=== PATIENT | male | born 1955 | race African-American/Black ===

== ENCOUNTER 2018-09-09 15:57 | Inpatient (IN) | payer MEDICARE, OTHER ==
[2018-09-09] MEDS ORDERED: Aspirin Chewable 81 MG TAB ONE (16:11)
[2018-09-09] MEDS ORDERED: Nitroglycerin 2% Ointment 1 INCH/1 GM Packet ONE (16:11)
[2018-09-09] MEDS ORDERED: Nitroglycerin 0.4 MG TAB 1 EACH ONE (16:11)
[2018-09-09] MEDS ORDERED: Furosemide 40 MG/4 ML VIAL ONE (16:15)
[2018-09-09 16:24] LABS: Actual Bicarbonate (HCO3a) 20.7 mEq/L (22-28); Analyzer IN Cardio ER; Base Excess (BEa) -8.1 mEq/L (-2.0 to +3.0); CO2 Tension 55.9 mmHg (35.0-45.0); Calcium, Ionized 1.18 mmol/L (1.12-1.30); Carboxyhemoglobin (COHb) 0.6 gm% (0.0-3.0); Hemoglobin (Hb) 14.8 g/dL (14.0-18.0); Potassium - ABG Lab 4.77 mmol/L (3.70-5.30)
[2018-09-09 16:25] LABS: ALV-art Gradient 132.625 (0-20); Puncture Site LRA; pH, Arterial 7.19 (7.35-7.45)
[2018-09-09 16:27] LABS: #Basophils 0.1 thou/uL (0.0-0.2); #Eosinphils 0.3 thou/uL (0.0-0.7); #Monocytes 1.6 thou/uL (0.11-0.59); %Basophils 0.6 % (0.0-1.0); %Eosinophils 1.9 % (0.0-10.0); %Lymphocytes 26.7 % (21.0-51.0); %Monocytes 10.4 % (0.0-10.0); %Neutrophils 60.4 % (42.0-75.0); Hemoglobin 15.1 g/dL (14.0-18.0); Mean Corpuscular HGB CONC 30.3 g/dL (32.0-36.0); Mean Corpuscular Hemoglobin 30.5 pg (27.0-31.0); Mean Platelet Volume 8.6 fL (7.4-10.4); Platelet Count 271 thou/uL (130-400); RBC Distribution Width 12.9 % (11.5-14.5); Red Blood Cell (RBC) Count 4.95 mill/uL (4.70-6.10); White Blood Cell (WBC) Count 14.9 thou/uL (4.8-10.8)
[2018-09-09 16:48] LABS: ALT (SGPT) 35 U/L (8-55); AST (SGOT) 20 U/L (5-34); Albumin 4.5 g/dL (3.4-4.8); Alkaline Phosphatase 85 U/L (40-150); Anion Gap 20 mmol/L (10-20); BUN (Urea Nitrogen) 25 mg/dL (8.4-25.7); Bilirubin, Total 0.3 mg/dL (0.2-1.2); CK (CPK) 258 U/L (30-200); Calc. Creatinine Clearance 0 mL/min (70-130); Calcium 9.5 mg/dL (7.8-10.44); Carbon Dioxide 21 mmol/L (23-31); Chloride 105 mmol/L (98-107); Estimated GFR-MDRD 42; Globulin 3.2 g/dL (2.4-3.5); Glucose 210 mg/dL (80-115); Lipase 50 U/L (8-78); Potassium 4.8 mmol/L (3.5-5.1); Protein, Total 7.7 g/dL (5.8-8.1); Sodium 141 mmol/L (136-145)
[2018-09-09 17:10] LABS: CKMB 2.9 ng/mL (0-6.6)
--- NOTE | 2018-09-09 17:11 | RAD ---
FRONTAL VIEW CHEST: Date: 09/09/18 COMPARISON: 09/15/10. INDICATION: Dyspnea. FINDINGS: The cardiac silhouette is enlarged and there is evidence of bilateral patchy perihilar opacification. Single lead AICD remains in place. Probable right pleural fluid. IMPRESSION: Evidence of decompensated CHF, with pulmonary edema. Recommend follow-up to resolution. POS: ALTAF
[2018-09-09 21:04] LABS: Troponin I 0.088 ng/mL (< 0.028)
[2018-09-09] MEDS ORDERED: Acetaminophen 325 MG TAB PO PRN (21:42)
[2018-09-09] MEDS ORDERED: Zolpidem Tartrate 5 MG TAB PO PRN (21:42)
[2018-09-09] MEDS ORDERED: Ondansetron PF 4 MG/2 ML Vial IVP PRN (21:42)
[2018-09-09] MEDS ORDERED: Dextrose 5% in Water 1,000 ML IV PRN (21:44)
[2018-09-09] MEDS ORDERED: HumaLOG 300 UNITS/3 ML VIAL SC PRN ×2 (21:44)
[2018-09-09] MEDS ORDERED: Dextrose 50% Abboject 50 ML SYRINGE SLOW IVP PRN (21:44)
--- NOTE | 2018-09-09 21:52 | PDOC.EVN ---
Event Note - Event Note Event Note: H&P [id number]
[2018-09-09] MEDS ORDERED: cefTRIAXone\\ROCEPHIN 1 GM in Sodium Chloride 0.9% 100 ML IVPB SCH (23:00)
[2018-09-09 23:43] VITALS: BMI 37.6
[2018-09-09 23:50] LABS: Troponin I 0.085 ng/mL (< 0.028)
[2018-09-10] MEDS: Azithromycin 500 MG in Sodium Chloride 0.9% 250 ML 250 ML IVPB SCH ×2 (01:02→22:03)
[2018-09-10] MEDS: methylPREDNISolone Sod Succ 40 MG VIAL IVP SCH ×3 (01:02→11:29)
[2018-09-10] MEDS: cefTRIAXone\\ROCEPHIN 1 GM in Sodium Chloride 0.9% 100 ML IVPB SCH (03:30)
[2018-09-10 06:00] LABS: Band 5 % (5-11); Hemoglobin 12.7 g/dL (14.0-18.0); Lymphocytes 13 % (21-51); MDiff Complete? YES; Mean Corpuscular HGB CONC 31.7 g/dL (32.0-36.0); Mean Corpuscular Volume 98.1 fL (78.0-98.0); Mean Platelet Volume 8.5 fL (7.4-10.4); Monocytes 2 % (0-10); Neutrophil 79 % (42-75); Platelet Count 231 thou/uL (130-400); RBC Distribution Width 12.7 % (11.5-14.5); Reactive Lymphocytes 1 % (0-10); Red Blood Cell (RBC) Count 4.09 mill/uL (4.70-6.10)
[2018-09-10 06:39] LABS: Anion Gap 15 mmol/L (10-20); BUN (Urea Nitrogen) 24 mg/dL (8.4-25.7); Calc. Creatinine Clearance 85 mL/min (70-130); Carbon Dioxide 24 mmol/L (23-31); Chloride 105 mmol/L (98-107); Estimated GFR-MDRD 54; Glucose 265 mg/dL (80-115); Sodium 139 mmol/L (136-145)
--- NOTE | 2018-09-10 07:27 | HP ---
CHIEF COMPLAINT OF ADMISSION: Shortness of breath and cough as well as dyspnea on exertion. HISTORY OF PRESENT ILLNESS: This is a 63-year-old male, presenting to the hospital with 3-4 days of shortness of breath. The patient states that today he was having severe hypoxia and shortness of breath upon ambulation, decided to come into the ER. The patient does state that he has been smoking a pack a day for the past 30+ years and continues to do so. Stated that he quit approximately a month ago. The patient has never had any prior pulmonary evaluations or pulmonary function tests or pulmonary followup. Admits to a past medical history of diabetes mellitus, hypertension, as well as hyperlipidemia. No prior heart attacks or strokes or stenting done. The patient states that currently he feels well after the breathing treatment, steroids as well as supplemental oxygen that was given in the ER. The patient states otherwise he has no other alleviating factors. No associated symptoms. No aggravating factors. The patient was seen and examined in the ER and room. No family at bedside. All questions answered. ALLERGIES: NO KNOWN DRUG ALLERGIES. HOME MEDICATIONS: See MAR. PAST MEDICAL HISTORY: Hypertension, hyperlipidemia, smoking history, emphysema. SOCIAL HISTORY: One pack a day smoker for 20 to 30 years. Social drinker. FAMILY HISTORY: Positive for hypertension and coronary artery disease. REVIEW OF SYSTEMS: All systems reviewed. Pertinent positives in HPI, otherwise negative. PHYSICAL EXAMINATION: VITAL SIGNS: Blood pressure , pulse of 82, respiratory rate of 20, O2 saturation 100% on 3 L nasal cannula, temperature 98.5. GENERAL: The patient is lying in bed, mild respiratory discomfort. HEENT: Extraocular muscles are intact. NC/AT. Pupils are equal, round, and reactive to light and accommodation bilaterally. Oral cavity is moist and pink. NECK: Nontender, mobile. Thyroid appreciated. PULMONARY: Reveals inspiratory wheezing. Mild respiratory distress. Slight increase in AP diameter. CARDIOVASCULAR: Sinus tachycardia. S1 and S2. No murmurs, rubs, or gallops appreciated. ABDOMEN: Rotund. Positive bowel sounds. Soft, nontender. EXTREMITIES: Trace edema. 2+ peripheral pulses. No cyanosis or clubbing noted. NEUROLOGICAL: Cranial nerves 2 through 12 are intact. Alert and oriented x3. No loss of motor or sensory function. IMAGING: Chest x-ray done in the ER shows no evidence of pulmonary edema or CHF decompensation. LABORATORY DATA: Labs show a white count of 15.1, otherwise CBC normal. ABG shows a pH of 7.2, pCO2 of 56 acutely elevated, PO2 154. Basic metabolic panel shows a glucose of 210. Troponins of 0.043, 2nd one was 0.088. Brain natriuretic peptide of 314, creatinine 1.95. ASSESSMENT: 1. Troponin leak. 2. Shortness of breath. 3. Chronic obstructive pulmonary disease exacerbation. 4. Acute kidney injury versus chronic kidney disease. 5. Diabetes mellitus, type 2. 6. Hyperlipidemia. 7. Hypertension. PLAN: At this point in time, we will admit the patient to internal medicine team. We will consult to Nephrology and Cardiology. We will start the patient on aspirin, statin, heparin 5000 units q.12. Concern for ACS, however, borderline troponin leak with elevated creatinine may be secondary to decreased clearance. We will consult Cardiology and Nephrology for input. Target systolic blood pressure 120 to 140. We will start the patient on steroids. We will start the patient on insulin. We will give the patient Rocephin, azithromycin for his cough as well as the elevated white count, possibly bronchitis causing a COPD exacerbation. We will get an echo. The patient wishes to remain a full code. Case and plan were discussed with the patient at length. No family at bedside. All questions answered. He understood and agreed with this plan. Job ID: [id number]
[2018-09-10] MEDS ORDERED: Heparin 5,000 UNITS/ML VIAL SC SCH (09:00)
--- NOTE | 2018-09-10 10:16 | CON ---
DATE OF CONSULTATION: 09/10/2018 REASON FOR CONSULTATION: Congestive heart failure, systolic, [id number]. HISTORY OF PRESENT ILLNESS: Mr. Saeed is a 63-year-old gentleman with a history of nonischemic cardiomyopathy. The patient was previously seen here most recently from what I can tell 6 years ago. The patient had undergone cardiac catheterization in the past after presenting with congestive heart failure. In May 2010, he underwent catheterization, he was found to have: 1. Left main normal. 2. LAD mild proximal plaque, but no stenosis. 3. Circumflex, no stenosis. 4. Right coronary normal. 5. Ejection fraction is 25%. He has been treated for congestive heart failure and systolic dysfunction since then. He has been followed at [facility], [place], operated by [facility] for the last 5 years, he tells me. The patient also had a previous defibrillator implantation. The patient states he was feeling well up until yesterday, started having trouble breathing, came to the hospital, found to be in congestive heart failure and has been admitted for further therapy. PAST MEDICAL HISTORY: 1. Systolic congestive heart failure. 2. Apparently, he has a history of atrial fibrillation, is on apixaban and amiodarone. 3. Diabetes. 4. Hypertension. 5. COPD. MEDICATIONS: Prior to admission: 1. Carvedilol 25 mg twice daily. 2. Atorvastatin 10 mg daily. 3. Apixaban 5 mg twice daily. 4. Lisinopril 20 mg daily. 5. Amiodarone 200 mg daily. 6. Furosemide 40 mg daily. 7. Metformin. OTHER PAST HISTORY: He has a history of renal insufficiency. I believe he has had a nephrectomy in the remote past. SOCIAL HISTORY: Smokes rarely a few cigarettes per day intermittently. FAMILY HISTORY: Negative for heart disease at a young age. ALLERGIES: NONE KNOWN. PHYSICAL EXAMINATION: GENERAL: This is a pleasant 63-year-old man in no distress. VITAL SIGNS: Blood pressure is 126/69, pulse 70. HEENT: Eyes, sclerae nonicteric. Mouth mucous membranes moist. NECK: Supple. No lymphadenopathy. LUNGS: Clear. No wheezing, rales, or rhonchi. CARDIAC: Normal S1, normal S2. There is no murmur, rub, or gallop. ABDOMEN: Obese, nontender. No hepatosplenomegaly. EXTREMITIES: Warm dry, no clubbing, cyanosis. There is no edema. Peripheral pulses are present, palpable in the feet. PERTINENT LABORATORY DATA: Hemoglobin is 12.7, creatinine is 1.58, glucose 290, troponin 0.088, peak BNP 314. Chest x-ray shows pulmonary congestion and cardiomegaly. ASSESSMENT: 1. Congestive heart failure, systolic, [id number]. 2. History of nonischemic cardiomyopathy based on catheterization 2009. 3. Renal insufficiency as outlined above. 4. History of defibrillator implantation. PLAN: 1. Echocardiogram. 2. Continue heart failure medication. 3. We will draw TSH. 4. Further recommendations based on hospital course. The patient has been followed at the [facility] for the last 5 years from a heart failure standpoint. Job ID: [id number]
[2018-09-10] MEDS: Aspirin 325 mg Enteric Coated Tablet PO SCH (10:19)
[2018-09-10 12:30] LABS: Hemoglobin 13.1 g/dL (14.0-18.0); Platelet Count 246 thou/uL (130-400)
--- NOTE | 2018-09-10 13:53 | PDOC.PN ---
- Subjective Encounter Start Date: 09/10/18 Encounter Start Time: 12:30 Mr. Saeed was seen today in follow-up of Acute respiratory distress. He says he is breathing much better this afternoon. He has walked without difficulty, and he denies any chest pain. - Objective Resuscitation Status - Order Detail: 09/09/18 21:42 Resuscitation Status Routine Resuscitation Status: FULL: Full Resuscitation Discussed with: patient MAR Reviewed: Yes Vital Signs & Weight: Vital Signs (12 hours) Temp Pulse Resp BP Pulse Ox 09/10/18 11:31 97.8 F 89 20 134/71 93 L 09/10/18 07:49 98.5 F 71 17 126/69 94 L 09/10/18 04:57 99.6 F 66 20 116/60 96 Weight Weight 277 lb 12.8 oz I&O: 09/09/18 09/10/18 09/11/18 06:59 06:59 06:59 Intake Total 580 Output Total 250 Balance 330 Result Diagrams: 09/10/18 12:15 09/10/18 05:05 Additional Labs: Accuchecks 09/10/18 09/10/18 10:18 05:56 POC Glucose 244 H 290 H Phys Exam - Physical Examination HEENT: PERRLA Respiratory: no wheezing, no rales, no rhonchi, clear to auscultation bilateral Cardiovascular: RRR, no significant murmur, no rub Gastrointestinal: soft, non-tender, no distention, positive bowel sounds Musculoskeletal: no edema, pulses present Dx/Plan (1) Acute respiratory failure Code(s): J96.00 - ACUTE RESPIRATORY FAILURE, UNSP W HYPOXIA OR HYPERCAPNIA Status: Acute (2) Acute on chronic systolic heart failure, NYHA class 2 Code(s): I50.23 - ACUTE ON CHRONIC SYSTOLIC (CONGESTIVE) HEART FAILURE Status : Acute (3) Hypertension Code(s): I10 - ESSENTIAL (PRIMARY) HYPERTENSION Status: Acute (4) COPD (chronic obstructive pulmonary disease) Status: Acute - Plan * Acute on chronic respiratory failure- clinically this is more due to CHF exacerbation than COPD * He feels much improved, after being given Lasix. It is unclear if this represents an Acute coronary syndrome as well. Echo has been ordered, and await further recommendations from Cardiology * HTN- blood pressure is stable * COPD- stable - will transition him to oral steroids, and oral antibiotics in the AM
[2018-09-10] MEDS: Furosemide 40 MG/4 ML VIAL SLOW IVP SCH (14:59)
[2018-09-10] MEDS: Carvedilol 25 MG TAB PO SCH (16:38)
--- NOTE | 2018-09-10 19:10 | CON ---
DATE OF CONSULTATION: 09/10/2018 CONSULTING PHYSICIAN: Dr. George. REASON FOR CONSULTATION: Acute kidney injury. REASON FOR ADMISSION: Shortness of breath. HISTORY OF PRESENT ILLNESS: This is a 63-year-old male with history of hypertension and hyperlipidemia, who came to the hospital with shortness of breath and is being treated. Nephrology is consulted for elevated renal function. His creatinine was 1.9, and Nephrology is consulted. The patient is feeling better. PAST MEDICAL HISTORY: Positive for hypertension, hyperlipidemia, tobacco use, and emphysema. PAST SURGICAL HISTORY: Hernia surgery and right nephrectomy. HOME MEDICATIONS: Reviewed. ALLERGIES: NO KNOWN DRUG ALLERGIES. SOCIAL HISTORY: FAMILY HISTORY: No history of any kidney disease. REVIEW OF SYSTEMS: CONSTITUTIONAL: Negative for weight loss or gain, ability to conduct usual activities. SKIN: Negative for rash, itching. EYES: Negative for double vision, pain. ENT/MOUTH: Negative for nose bleeding, neck stiffness, pain, tenderness. CARDIOVASCULAR: Negative for palpitations, dyspnea on exertion, orthopnea. RESPIRATORY: Negative for shortness of breath, wheezing, cough, hemoptysis, fever or night sweats. GASTROINTESTINAL: Negative for poor appetite, abdominal pain, heartburn, nausea, vomiting, constipation, or diarrhea. GENITOURINARY: Negative for urgency, frequency, dysuria, nocturia. MUSCULOSKELETAL: Negative for pain, swelling. NEUROLOGIC/PSYCHIATRIC: Negative for anxiety, depression. ALLERGY/IMMUNOLOGIC: Negative for skin rash, bleeding tendency. PHYSICAL EXAMINATION: GENERAL: This is a well-built male, in no apparent distress. VITAL SIGNS: Temperature 98.2, pulse 71, respiratory rate 18, blood pressure 133/74. HEENT: Atraumatic and normocephalic. Oral mucosa is moist. NECK: Supple. CARDIOVASCULAR: S1 and S2 heard. Rate and rhythm are regular. RESPIRATORY: Clear. GI: Abdomen is soft. MUSCULOSKELETAL: 1+ edema. DERMATOLOGIC: No skin rash. NEUROLOGIC: Alert and awake. PSYCHIATRIC: Normal mood and affect. LABORATORY DATA: Potassium is 5.0, BUN is 24, creatinine is ASSESSMENT AND PLAN: 1. Acute kidney injury, most likely cardiorenal syndrome. Avoid nephrotoxins. 2. Hyperkalemia, mild. 3. Edema, controlled. 4. Hypertension. 5. Anemia. 6. Metabolic acidosis. 7. Avoid nephrotoxins. We will follow. Job ID: [id number]
[2018-09-10] MEDS: Apixaban 5 MG TAB PO SCH (20:34)
[2018-09-10] MEDS ORDERED: Insulin Glargine 5 UNITS in Pre-Filled Syringe 1 EACH SC SCH (21:00)
[2018-09-10] MEDS ORDERED: Atorvastatin Calcium 40 MG TAB PO SCH (21:00)
[2018-09-11] MEDS: cefTRIAXone\\ROCEPHIN 1 GM in Sodium Chloride 0.9% 100 ML IVPB SCH (03:51)
[2018-09-11] MEDS: Furosemide 40 MG/4 ML VIAL SLOW IVP SCH (05:27)
[2018-09-11 06:31] LABS: Hemoglobin 13.1 g/dL (14.0-18.0); Platelet Count 247 thou/uL (130-400)
[2018-09-11 06:51] LABS: Anion Gap 13 mmol/L (10-20); BUN (Urea Nitrogen) 25 mg/dL (8.4-25.7); Calc. Creatinine Clearance 93 mL/min (70-130); Calcium 9.1 mg/dL (7.8-10.44); Carbon Dioxide 27 mmol/L (23-31); Chloride 104 mmol/L (98-107); Estimated GFR-MDRD 60; Glucose 250 mg/dL (80-115); Potassium 4.5 mmol/L (3.5-5.1); Sodium 139 mmol/L (136-145)
[2018-09-11] MEDS ORDERED: predniSONE 20 MG TAB PO SCH (08:00)
[2018-09-11] MEDS ORDERED: glipiZIDE 10 MG TAB PO SCH (09:00)
[2018-09-11] MEDS ORDERED: Lisinopril 20 MG TAB PO SCH (09:00)
[2018-09-11] MEDS: Carvedilol 25 MG TAB PO SCH ×2 (09:25→16:28)
[2018-09-11] MEDS: Aspirin 325 mg Enteric Coated Tablet PO SCH (09:25)
[2018-09-11] MEDS: Apixaban 5 MG TAB PO SCH (09:32)
--- NOTE | 2018-09-11 10:02 | PRG ---
DATE OF SERVICE: 09/11/2018 SUBJECTIVE: Mr. Saeed is feeling better. He is not short of breath. He has no chest pain or tightness. He is resting comfortably. OBJECTIVE: VITAL SIGNS: Blood pressure 129/72, pulse 72 and regular. LUNGS: Clear. CARDIAC: Normal S1, normal S2. ABDOMEN: Soft, nontender. EXTREMITIES: There is no edema. PERTINENT LABORATORY DATA: Creatinine is 1.45, improved. Echocardiogram shows ejection fraction 25% to 30% with global hypokinesis and dilated left ventricle. ASSESSMENT: 1. Congestive heart failure, systolic, acute on chronic with history of nonischemic cardiomyopathy, has been followed at [facility] in [place] for several years. The patient is currently compensated. 2. Renal insufficiency/failure, improved. Now estimated GFR is up to 60. PLAN: 1. Okay to me to be released home to follow up [place] [facility]. 2. I would recommend a consideration for Entresto instead of lisinopril as an outpatient, but he will need to follow up with his primary lube technician to consider changing, will need to stop lisinopril for at least 36 hours prior to institution of Entresto. Job ID: [id number]
--- NOTE | 2018-09-11 12:04 | PDOC.PN ---
- Subjective Encounter Start Date: 09/11/18 Encounter Start Time: 12:01 Mr. Saeed was seen today in follow-up of CHF exacerbation. He says he is breathing better. He does not have any new complaints. - Objective Resuscitation Status - Order Detail: 09/09/18 21:42 Resuscitation Status Routine Resuscitation Status: FULL: Full Resuscitation Discussed with: patient SONG Reviewed: Yes Vital Signs & Weight: Vital Signs (12 hours) Temp Pulse Resp BP Pulse Ox 09/11/18 11:13 98.4 F 62 17 112/64 93 L 09/11/18 07:03 95 09/11/18 07:00 98.0 F 73 17 129/72 95 09/11/18 04:00 97.7 F 73 18 109/56 L 93 L Weight Weight 277 lb 12.8 oz I&O: 09/10/18 09/11/18 09/12/18 06:59 06:59 06:59 Intake Total 580 1560 Output Total 250 3050 Balance 330 -1490 Result Diagrams: 09/11/18 05:46 09/11/18 05:46 Additional Labs: Accuchecks 09/11/18 09/11/18 09/10/18 10:35 05:40 20:19 POC Glucose 215 H 237 H 284 H 09/10/18 16:48 POC Glucose 268 H Phys Exam - Physical Examination HEENT: PERRLA Respiratory: no wheezing, no rales, no rhonchi, clear to auscultation bilateral Cardiovascular: RRR, no significant murmur, no rub Gastrointestinal: soft, non-tender, no distention, positive bowel sounds Musculoskeletal: edema present Dx/Plan (1) Acute respiratory failure Code(s): J96.00 - ACUTE RESPIRATORY FAILURE, UNSP W HYPOXIA OR HYPERCAPNIA Status: Acute (2) Acute on chronic systolic heart failure, NYHA class 2 Code(s): I50.23 - ACUTE ON CHRONIC SYSTOLIC (CONGESTIVE) HEART FAILURE Status : Acute (3) Hypertension Code(s): I10 - ESSENTIAL (PRIMARY) HYPERTENSION Status: Acute (4) COPD (chronic obstructive pulmonary disease) Status: Acute - Plan * Acute on chronic systolic heart failure- improved * DM- re-start all diabetic medications at discharge * OK for discharge home today.
[2018-09-11] MEDS ORDERED: Furosemide 20 MG TAB PO SCH (14:00)
--- NOTE | 2018-09-11 14:09 | PRG ---
DATE OF SERVICE: 09/11/2018 SUBJECTIVE: Patient was seen and examined at bedside and overnight events noted. Patient denies any shortness of breath or chest pain or palpitation. No history of nausea or vomiting or diarrhea or fever or chills or cramps. OBJECTIVE: GENERAL: This is a well-built male, in no apparent distress. VITAL SIGNS: Temperature 98.4. Heart rate 62. Respiratory rate 18. Blood pressure 112/64. HEENT: Atraumatic, normocephalic. Oral mucosa is moist NECK: Supple. CARDIOVASCULAR: S1, S2 heard. Rate and rhythm regular. RESPIRATORY: Clear to auscultation. GASTROINTESTINAL: Abdomen is soft. MUSCULOSKELETAL: No tenderness. No edema. DERMATOLOGIC: No skin rash. NEUROLOGIC: Alert and awake and oriented X3. No focal neurologic deficits. Moving all the extremities. PSYCHIATRIC: Mood and affect normal. LABORATORY DATA: Potassium is 4.5, BUN is 25, and creatinine is 1.4. ASSESSMENT AND PLAN: 1. Acute kidney injury on chronic kidney disease, stage 3. Renal is function stable. Avoid nephrotoxins. 2. Hyperkalemia, better. 3. Edema, controlled. 4. Hypertension. 5. Anemia. Renal function is better. I will sign off. Please call back with any questions. Job ID: [id number]
[2018-09-11 16:28] VITALS: BP 139/76; TEMP 98
--- NOTE | 2018-09-12 02:45 | DIS ---
DATE OF ADMISSION: 09/09/2018 DATE OF DISCHARGE: 09/11/2018 DISCHARGE DISPOSITION: Home. PRIMARY CARE PHYSICIAN: Dr. Cruz. DISCHARGE DIAGNOSES: 1. Acute on chronic systolic heart failure. 2. Hyperlipidemia. 3. Hypertension. 4. Chronic obstructive pulmonary disease. 5. Tobacco abuse. DISCHARGE MEDICATIONS: Include; 1. Metformin 500 mg daily. 2. Lisinopril 20 mg daily. 3. [place] 5/325 q.6 as needed. 4. Glipizide 10 mg twice a day. 5. Lasix 40 mg daily. 6. Carvedilol 25 mg twice a day. 7. Atorvastatin 10 mg daily. 8. Eliquis 5 mg twice a day. 9. Amiodarone 200 mg daily. CODE STATUS: Full code. ALLERGIES: NO KNOWN DRUG ALLERGIES. PROCEDURES DONE DURING ADMISSION: The patient had an echocardiogram which demonstrated an ejection fraction estimated at 25% to 30%. There was some global hypokinesis. HOSPITAL COURSE: Mr. Saeed is a pleasant 63-year-old gentleman who presented to the emergency room complaining of shortness of breath as well as some dyspnea on exertion. The patient was found to have acute on chronic systolic heart failure. He was admitted, diuresed, and improved overnight. He normally sees a household appliance installer at [facility]. However, we were concerned for acute coronary syndrome given the sudden nature of his shortness of breath as he said it started while he was driving from [place] back to the [facility]. An echocardiogram was done, which showed the severely depressed EF. It is suggested that he may require adjustments in his medications, but since he is now stable and it was felt more prudent that he be treated by his primary household appliance installer and he will be seeing him early next week in followup. The patient was thought to possibly have a COPD exacerbation, but this was ruled out as it appears all of his symptoms were related to volume overload. He improved dramatically after being diuresed and therefore, he will not be discharged on any antibiotics or steroids. Job ID: [id number]
--- NOTE | 2018-09-12 02:59 | DIS ---
DATE OF ADMISSION: 09/09/2018 DATE OF DISCHARGE: 09/11/2018 PRIMARY CARE PHYSICIAN: Dr. Carrillo. DISCHARGE DISPOSITION: Home. PRIMARY DISCHARGE DIAGNOSES: 1. Hypertensive urgency. 2. Hypertension. 3. Diabetes mellitus, uncontrolled. 4. Medical noncompliance. 5. Diabetic peripheral neuropathy. DISCHARGE MEDICATIONS: Include; 1. Metformin 500 mg daily. 2. Lisinopril 20 mg daily. 3. Glipizide 10 mg twice a day. 4. Furosemide 40 mg daily. 5. Carvedilol 25 mg twice daily. 6. Atorvastatin 10 mg daily. 7. Eliquis 5 mg twice a day. 8. Amiodarone 200 mg. DICTATOR CANCELLED THE DICTATION. Job ID: [id number]
== END 2018-09-11 16:44 | disposition home or self-care (01) | DRG 291 ==
LOC: ERS 15:57 → 2NO 20:00 → OBSVTOIN 20:00
PROVIDERS: ADMIT Internal Medicine; ATTEND Internal Medicine
DX: I13.0 Hypertensive heart and chronic kidney disease with heart failure and stage 1 through stage 4 chronic kidney disease, or unspecified chronic kidney disease (principal); J96.20 Acute and chronic respiratory failure, unspecified whether with hypoxia or hypercapnia; I50.23 Acute on chronic systolic (congestive) heart failure; N17.9 Acute kidney failure, unspecified; E87.2 Acidosis; J44.9 Chronic obstructive pulmonary disease, unspecified; E11.22 Type 2 diabetes mellitus with diabetic chronic kidney disease; N18.3 Chronic kidney disease, stage 3 (moderate); I42.8 Other cardiomyopathies; I48.91 Unspecified atrial fibrillation; E87.5 Hyperkalemia; D63.1 Anemia in chronic kidney disease; E78.5 Hyperlipidemia, unspecified; R74.8 Abnormal levels of other serum enzymes; F17.210 Nicotine dependence, cigarettes, uncomplicated; Z95.810 Presence of automatic (implantable) cardiac defibrillator; Z90.5 Acquired absence of kidney; Z79.84 Long term (current) use of oral hypoglycemic drugs; Z82.49 Family history of ischemic heart disease and other diseases of the circulatory system
CPT/HCPCS: 36415; 36416; 71045; 80048; 80053; 82550; 82553; 82805; 83690; 83880; 84484; 85014; 85018; 85025; 85049; 87040; 93005; 93306; 93798; 94660; 94760; 96374; J0456; J0696; J1644; J1825; J1940; J2920; J7050

== ENCOUNTER 2020-01-11 09:42 | Inpatient (IN) | payer MEDICARE, OTHER ==
--- NOTE | 2020-01-11 10:07 | RAD ---
XR Chest 1 View Portable HISTORY: Shortness of breath COMPARISON: 09/09/2018 FINDINGS: The heart size is enlarged but stable. Left-sided AICD remains in place. The lungs are expa nded with pulmonary vascular congestion. No lobar consolidation or large effusions are seen.
[2020-01-11 10:10] LABS: Actual Bicarbonate (HCO3a) 23.6 mEq/L (22-28); Analyzer IN Cardio ER; Base Excess (BEa) -6.6 mEq/L (-2.0 to +3.0); Carboxyhemoglobin (COHb) 0.2 gm% (0.0-3.0); Hemoglobin (Hb) 15.1 g/dL (14.0-18.0); O2 Tension (PaO2), arterial 74.6 mmHg (> 80.0); Potassium - ABG Lab 4.67 mmol/L (3.70-5.30)
[2020-01-11 10:19] LABS: ALV-art Gradient 67.685 (0-20); CO2 Tension 68.7 mmHg (35.0-45.0); Puncture Site LRA; pH, Arterial 7.15 (7.35-7.45)
[2020-01-11 10:20] LABS: Hemoglobin 14.4 g/dL (14.0-18.0); Mean Corpuscular HGB CONC 29.9 g/dL (32.0-36.0); Mean Corpuscular Hemoglobin 29.3 pg (27.0-31.0); Mean Corpuscular Volume 98.3 fL (78.0-98.0); Mean Platelet Volume 8.6 fL (7.4-10.4); Platelet Count 258 thou/uL (130-400); RBC Distribution Width 13.5 % (11.5-14.5); Red Blood Cell (RBC) Count 4.91 mill/uL (4.70-6.10); White Blood Cell (WBC) Count 13.2 thou/uL (4.8-10.8)
[2020-01-11 10:21] LABS: #Basophils 0.1 thou/uL (0.0-0.2); #Eosinphils 0.3 thou/uL (0.0-0.7); #Lymphocytes 4.4 thou/uL (1.20-3.40); #Neutrophils 7.5 thou/uL (1.40-6.50); %Basophils 0.5 % (0.0-1.0); %Eosinophils 2.1 % (0.0-10.0); %Lymphocytes 33.1 % (21.0-51.0); %Monocytes 7.6 % (0.0-10.0); %Neutrophils 56.7 % (42.0-75.0)
[2020-01-11 10:33] LABS: ALT (SGPT) 45 U/L (8-55); AST (SGOT) 36 U/L (5-34); Albumin 4.1 g/dL (3.4-4.8); Alkaline Phosphatase 84 U/L (40-110); Anion Gap 16 mmol/L (10-20); BUN (Urea Nitrogen) 17 mg/dL (8.4-25.7); Bilirubin, Total 0.3 mg/dL (0.2-1.2); Calc. Creatinine Clearance 0 mL/min (70-130); Calcium 9.1 mg/dL (7.8-10.44); Carbon Dioxide 20 mmol/L (23-31); Chloride 105 mmol/L (98-107); Estimated GFR-MDRD 50; Globulin 3.5 g/dL (2.4-3.5); Glucose 333 mg/dL (80-115); Potassium 4.6 mmol/L (3.5-5.1); Protein, Total 7.6 g/dL (5.8-8.1); Sodium 136 mmol/L (136-145)
[2020-01-11 10:45] LABS: Platelet Morphology Comment Appears Adequate; RBC Morphology Normal
[2020-01-11 10:51] LABS: CKMB 2.3 ng/mL (0-6.6)
[2020-01-11 11:25] LABS: SARS-CoV-2 NAA Rapid Test Not Detected (NotDetected)
[2020-01-11 11:50] LABS: MDiff Complete? YES
[2020-01-11] MEDS ORDERED: Acetaminophen 325 MG TAB PO PRN (14:28)
[2020-01-11] MEDS ORDERED: Dextrose 50% Abboject 50 ML SYRINGE SLOW IVP PRN (14:28)
[2020-01-11] MEDS ORDERED: Dextrose 5% in Water 1,000 ML IV PRN (14:28)
[2020-01-11] MEDS ORDERED: HumaLOG 300 UNITS/3 ML VIAL SC PRN (14:28)
[2020-01-11 14:58] LABS: Troponin I 0.087 ng/mL (< 0.028)
[2020-01-11] MEDS ORDERED: Furosemide 40 MG/4 ML VIAL SLOW IVP SCH (15:00)
[2020-01-11] MEDS ORDERED: Furosemide 20 MG/2 ML VIAL ONE (15:19)
[2020-01-11 16:21] LABS: Troponin I 0.112 ng/mL (< 0.028)
--- NOTE | 2020-01-11 17:40 | HP ---
PRIMARY CARE PHYSICIAN: Dr. Iva Sotelo with [facility]. CHIEF COMPLAINT: "I couldn't breathe." HISTORY OF PRESENT ILLNESS: The patient is a pleasant 64-year-old male with a past medical history significant for hypertension, congestive heart failure, and COPD , who presented to the emergency room this morning after difficulty breathing. The patient states that he slept fine last night lying flat, and this morning when he got up, out of nowhere he became increasingly short of breath. He states that he feels like he could not fully take a breath in. Denies any chest pain, abdominal pain, sick contacts, or fever. He states that he has been compliant with all of his medications and CPAP. EMS found him in respiratory distress at home, his O2 saturations were 80% on room air, and on 4 L, he improved to the mid 90s. They gave him DuoNebs x3 doses, Solu-Medrol, nitro spray x1, and then nitro paste to his left chest. His initial blood pressure was 210/110. The patient was briefly placed on BiPAP in the ER but was able to wean off it shortly. Today in the ER, they completed a chest x-ray, EKG, and lab work. PAST MEDICAL HISTORY: Hypertension, CHF, kidney mass, COPD, elevated cholesterol, diabetes type 2. PAST SURGICAL HISTORY: Nephrectomy in 2009, AICD placement, and hernia surgery. ALLERGIES: NO KNOWN DRUG ALLERGIES. MEDICATIONS: 1. Carvedilol 25 mg p.o. b.i.d. 2. Lisinopril 20 mg p.o. daily. 3. Eliquis 5 mg p.o. b.i.d. 4. Furosemide 40 mg b.i.d. 5. Amiodarone 20 mg p.o. daily. 6. Insulin 70/30, 30 units b.i.d. 7. Atorvastatin 10 mg at night. SOCIAL HISTORY: The patient lives at home with his . He has not worked since his nephrectomy in 2009. He states he quit smoking cigarettes a few years ago. Drinks alcohol occasionally and denies any illegal drug use. FAMILY HISTORY: Mom had diabetes type 2. Dad from a massive heart attack with no other medical history. REVIEW OF SYSTEMS: All other review of systems was negative unless noted in the HPI. PHYSICAL EXAMINATION: VITAL SIGNS: Blood pressure 114/76, pulse 67, respiratory rate 17, temperature 98.1, O2 saturation 99% on 2 L. GENERAL: No acute distress. HEENT: Head, atraumatic and normocephalic. Eyes, PERRLA. Extraocular muscles are intact. NECK: No lymphadenopathy. Trachea is midline. Normal range of motion. RESPIRATORY: Wheezes bilaterally in upper lobes, coarse throughout. Normal chest expansion. No cough. CARDIOVASCULAR: Regular rate and rhythm. No murmurs, no rubs, and no gallops. ABDOMEN: Bowel sounds normal. No tenderness with palpation. No distention. No guarding. EXTREMITIES: 2+ bilateral lower extremity swelling. Posterior tibial pulse intact. No cyanosis. NEUROLOGIC: No focal deficits. PSYCHIATRIC: Normal affect. Normal behavior. LABORATORY DATA: EKG, sinus tach at 107 with a right bundle-branch block, which is not new for him. Chest x-ray, the heart size is enlarged with stable left-sided AICD remains in place. Lungs are clear. No pulmonary vascular congestion. No lobar consolidation or large effusions are seen. White blood cells 13.2, hemoglobin 14.4, hematocrit 48.2. Blood gas; pH 7.15, pCO2 of 68.7, O2 saturation 90.8. Chemistry; sodium 136, potassium 4.6, carbon dioxide 20, BUN 17, creatinine 1.68 , GFR 50, glucose 333, AST 36. BNP 247.2. Troponin; first is 0.060, second is 0.087, and third is 0.112. COVID swab, COVID was not detected. IMPRESSION AND PLAN: Hypertensive emergency with flash pulmonary edema. The patient's hypertension has resolved at this time. We will continue to monitor him on telemetry. We will give the patient a now dose of Lasix and start him on it twice a day IV for the time being. Monitor him on telemetry overnight. The patient also has slightly elevated troponins which appear to be his baseline and we will continue to trend them. Denies any chest pain or shortness of breath past his initial episode that brought him in, he states he is feeling great right now. We will continue to attempt to diurese the patient with his heart failure as he does show congestion on exam and in his chest x-ray. We will restart the patient's home medications. Monitor blood sugars a.c. and at bedtime, and cover with sliding scale insulin as needed. Sequential compression devices will be held at this time due to the patient's edema, but the patient will be on his home Eliquis. Gastrointestinal prophylaxis in place with pepcid. The patient wishes to be a full code. His surrogate decision maker is his , Mariana Baker. The patient has been discussed with Dr. Edmondson. Job ID: [id number] [id number]
[2020-01-11] MEDS: Famotidine 20 MG TAB PO SCH (20:01)
[2020-01-12] MEDS: Furosemide 40 MG/4 ML VIAL SLOW IVP SCH ×2 (05:12→14:31)
[2020-01-12] MEDS: HumaLOG 300 UNITS/3 ML VIAL SC PRN ×2 (05:14→10:45)
[2020-01-12 06:19] VITALS: BMI 36.8
[2020-01-12 06:23] LABS: Anion Gap 14 mmol/L (10-20); BUN (Urea Nitrogen) 23 mg/dL (8.4-25.7); Calc. Creatinine Clearance 82 mL/min (70-130); Calcium 9.2 mg/dL (7.8-10.44); Carbon Dioxide 27 mmol/L (23-31); Chloride 102 mmol/L (98-107); Estimated GFR-MDRD 53; Glucose 270 mg/dL (80-115); Potassium 4.6 mmol/L (3.5-5.1); Sodium 138 mmol/L (136-145)
[2020-01-12 06:40] LABS: Band 13 % (5-11); Hemoglobin 13.8 g/dL (14.0-18.0); Lymphocytes 11 % (21-51); MDiff Complete? YES; Mean Corpuscular HGB CONC 31.3 g/dL (32.0-36.0); Mean Corpuscular Hemoglobin 30.1 pg (27.0-31.0); Mean Corpuscular Volume 96.4 fL (78.0-98.0); Mean Platelet Volume 8.8 fL (7.4-10.4); Metamyelocyte 1 % (0-0); Monocytes 5 % (0-10); Neutrophil 70 % (42-75); Platelet Count 220 thou/uL (130-400); Platelet Morphology Comment Appears Adequate; RBC Distribution Width 13.2 % (11.5-14.5); RBC Morphology Normal; Red Blood Cell (RBC) Count 4.58 mill/uL (4.70-6.10); White Blood Cell (WBC) Count 22.3 thou/uL (4.8-10.8)
[2020-01-12] MEDS: Famotidine 20 MG TAB PO SCH (08:04)
[2020-01-12 12:17] VITALS: BP 131/70; TEMP 97.6
--- NOTE | 2020-01-14 00:57 | PQF ---
Dear : Laya Ryder Date: 01/13 Please exercise your independent, professional judgment in responding to the clarification form. Clinical indicators are provided on the bottom of this form for your review Can you please further clarify the diagnosis of the patient? Please check appropriate box(es): [ ] Acute Respiratory Failure: [ ] with Hypoxia [ ] with Hypercapnia [ ] Acute Respiratory Failure due to: (etiology) [ ] ARDS (Acute Respiratory Distress Syndrome) [ ] Other diagnosis please specify [ x ] Unable to determine Physician Signature: Date/Time: For continuity of documentation, please document condition throughout progress notes and discharge summary. Thank You. To be completed by CDI/Coding staff for physician review: Present Clinical Indicators - Signs / Symptoms / Labs Results and Location in Medical Record [x ] Respiratory distress ED Provider pg.3 [x ] ABG confirms with acute respiratory acidosis ED Provider pg.2 [x ] CO2 retension ED Provider pg.2 [x ] Blood gas: pH 7.15, PCO2 of 68.7, O2 sat 90.8 Laboratory [x ] The lung is expanded with pulmonary vascular congestion X ray [x ] Hypertensive emergency with flash pulmonary edema H and P pg.2 [ x ] Respiratory: wheezes bilaterally in upper lobes, coarse throught HP Present Risk Factors Results and Location in Medical Record [ x ] CHF ED Provider pg.1 [ x ] COPD ED Provider pg.1 [ x ] Afib ED Provider pg.1 [ x ] former tobacco user ED Provider pg.1 [ x ] DM2 H and P pg.1 Present Treatments Results and Location in Medical Record [ x ] Oxygen ED Provider pg,1 [ x ] BiPAP ED Provider pg.2 [ x ] Chest X ray 01/10 Chest X ray folder 01/10 [ x ] IV Lasix 40mg MAR CDS/Farmer General Signature: Jose Vargas Phone #: ext [phone] Date: 01/14/20 Acute Respiratory Failure: ABG pH < 7.35 or > 7.45; Decreased oxygen saturation (<90% room air or < 95% on oxygen); PCO2 > 50 mm Hg; PO2 < 60 mm Hg; Labored or rapid respirations ARDS: Dx Criteria [[place] ARDS]: Respiratory symptoms within one week of a known clinical insult (e.g. shock, infection, surgery, trauma) Bilateral opacities in CXR/Chest CT not due to CHF or fluid This is a permanent part of the Medical Record MTDD
--- NOTE | 2020-01-14 00:59 | PQF ---
Dear : Laya Ryder Date: 01/13 Please exercise your independent, professional judgment in responding to the clarification form. Clinical indicators are provided on the bottom of this form for your review Can you please further clarify the type and acuity of CHF? Please check appropriate box(es): HEART FAILURE: A. ACUITY [ ] Acute [ x ] Acute on Chronic [ ] Chronic B. TYPE: [ ] Systolic / HFrEF [ ] Diastolic / HFpEF [ ] Combined Systolic / Diastolic [ ] Other diagnosis please specify [ x ] Unable to determine In addition, please specify: Physician Signature: Date/Time: For continuity of documentation, please document condition throughout progress notes and discharge summary. Thank You. o be completed by CDI/Coding staff for physician review: Present Clinical Indicators - Signs / Symptoms / Labs Results and Location in Medical Record [ x ] Ejection Fraction 30-35% Echocardiogram [ x ] Respiratory distress ED Provider pg.3 [ x ] Hypertensive emergency with flash pulmonary edema H and P pg.2 [ x ] The patient with his heart failure as he does show congestion on exam H and P pg.2 [ x ] The lung is expanded with pulmonary vascular congestion X ray [ x ] BNP 247.2 Laboratory [ x ] lower extremity: mild edema bilaterally ED Notes 01/10 [ x ] Respiratory: wheezes bilaterally in upper lobes, coarse thought HP 01/10 Present Risk Factors Results and Location in Medical Record [ x ] COPD ED Provider pg.1 [ x ] Afib ED Provider pg.1 [ x ] former tobacco user ED Provider pg.1 [ x ] DM2 H and P pg.1 [ x ] HTN HP 01/10 [ x ] Elevated cholesterol HP 01/10 Present Treatments Results and Location in Medical Record [ x ] Echocardiogram Echocardiogram Report [ x ] BiPAP ED Provider Report pg.1 [ x ] Chest X ray 01/10 Chest X ray 01/10 folder [ x ] IV Lasix 40mg MAR CDS/Hose Tester Signature: Jose Vargas Phone #: ext [phone] Date:01/14/20 This is a permanent part of the Medical Record [facility]
--- NOTE | 2020-01-14 21:07 | DIS ---
DATE OF ADMISSION: 01/11/2020 DATE OF DISCHARGE: 01/12/2020 HOSPITAL COURSE: Mr. Saeed is a 64-year-old male with a medical history of hypertension, heart failure with reduced ejection fraction of 30% to 35%, presented with acute shortness of breath. He was diagnosed with hypertensive emergency, resulting in flash pulmonary edema and acute hypoxic hypercapnic respiratory failure requiring Bipap. Initially could not complete a sentence without getting short of breath, but responded sooner than expected to nitroglycerin, antihypertensives, and diuresis. On discharge, he was educated extensively regarding management of hypertension and heart failure. He was discharged home hemodynamically stable with no complaints. PHYSICAL EXAMINATION: VITAL SIGNS: Blood pressure 131/70, pulse is 59, respiratory rate 15, oxygen saturation 98% on room air, temperature 97.6 Fahrenheit. GENERAL: Lying comfortably in bed. Awake and alert. HEENT: Normocephalic, atraumatic. No JVD. RESPIRATORY: Clear to auscultation bilaterally. No wheezing or rhonchi. Mild bibasilar rales, which are improved compared to the admission. CARDIOVASCULAR: Regular rate and rhythm. No murmurs, gallops, or rubs. ABDOMEN: Normal bowel sounds. Nontender, nondistended. EXTREMITIES: +2 bilateral pitting edema to mid tibial level somewhat improved compared to admission. PSYCHIATRIC: Proper mood and affect. Alert and oriented x3. MEDICATION LIST: No new medications. CONTINUED MEDICATIONS: 1. Coreg. 2. Atorvastatin. 3. Apixaban. 4. Glipizide. 5. Lisinopril. 6. Amiodarone. 7. [place]. 8. Furosemide. 9. Metformin. DICTATION ENDS HERE Job ID: [id number] MTDD
--- NOTE | 2020-01-14 23:30 | PQF ---
Dear : Surya Edmondson Date: 01/14 Please exercise your independent, professional judgment in responding to the clarification form. Clinical indicators are provided on the bottom of this form for your review Can you please further clarify the acuity of CHF? Please check appropriate box(es): HEART FAILURE: A. ACUITY [ ] Acute Systolic CHF [ x ] Acute on Chronic Systolic CHF [ ] Chronic Systolic CHF [ ] Other diagnosis please specify [ ] Unable to determine In addition, please specify: Present on Admission (POA): [ x ] Yes [ ] No [ ] Unable to determine Physician Signature: Date/Time: For continuity of documentation, please document condition throughout progress notes and discharge summary. Thank You. To be completed by CDI/Coding staff for physician review: Present Clinical Indicators - Signs / Symptoms / Labs Results and Location in Medical Record [ x ] Ejection Fraction 30-35% Echocardiogram [ x ] Heart failure with reduce EF of 30-35% DS pg.1 [ x ] Respiratory distress ED Provider pg.3 [ x ] Hypertensive emergency with flash pulmonary edema H and P pg.2 [ x ] The patient with his heart failure as he does show congestion on exam H and P pg.2 [ x ] The lung is expanded with pulmonary vascular congestion X ray [ x ] BNP 247.2 Laboratory [ x ] lower extremity: mild edema bilaterally ED Notes 01/10 [ x ] Respiratory: wheezes bilaterally in upper lobes, coarse throught HP Present Risk Factors Results and Location in Medical Record [ x ] COPD ED Provider pg.1 [ x ] Afib ED Provider pg.1 [ x ] former tobacco user ED Provider pg.1 [ x ] DM2 H and P pg.1 [ x ] HTN HP 01/10 [ x ] Elevated cholesterol HP 01/10 Present Treatments Results and Location in Medical Record [ x ] Echocardiogram Echocardiogram Report [ x ] BiPAP ED Provider Report pg.1 [ x ] Chest X ray 01/10 Chest X ray 01/10 folder [ x ] IV Lasix 40mg MAR CDS/Party Supply Specialist Signature: Joes Vargas Phone #: ext [phone] Date:01/15/20 This is a permanent part of the Medical Record [facility]
== END 2020-01-12 16:27 | disposition home or self-care (01) | DRG 291 ==
LOC: ERS 09:42 → ERHOLD 14:02 → T4-B 17:43
PROVIDERS: ADMIT Internal Medicine; ATTEND Internal Medicine
PROC: 5A09357 Assistance with Respiratory Ventilation, Less than 24 Consecutive Hours, Continuous Positive Airway Pressure (ICD-10-PCS; principal; 2020-01-11)
DX: I11.0 Hypertensive heart disease with heart failure (principal); J96.01 Acute respiratory failure with hypoxia; J96.02 Acute respiratory failure with hypercapnia; I16.1 Hypertensive emergency; J81.1 Chronic pulmonary edema; N17.9 Acute kidney failure, unspecified; I50.23 Acute on chronic systolic (congestive) heart failure; I48.91 Unspecified atrial fibrillation; J44.9 Chronic obstructive pulmonary disease, unspecified; Z20.828 Contact with and (suspected) exposure to other viral communicable diseases; E11.9 Type 2 diabetes mellitus without complications; Z87.891 Personal history of nicotine dependence; Z79.899 Other long term (current) drug therapy; Z79.51 Long term (current) use of inhaled steroids; Z95.810 Presence of automatic (implantable) cardiac defibrillator
CPT/HCPCS: 36415; 36416; 71045; 80048; 80053; 82553; 82805; 83880; 84484; 85025; 93005; 93306; 94660; 94760; 97139; 99292; J1940; U0002

== ENCOUNTER 2021-11-27 04:14 | Emergency (ER) | payer MEDICARE ==
[2021-11-27] MEDS ORDERED: methylPREDNISolone Sod Succ/PF 125 MG/2 ML VIAL ONE (04:32)
[2021-11-27] MEDS ORDERED: Magnesium 2 GM/50 ML BAG (IN WATER) ONE (04:32)
[2021-11-27 04:56] LABS: #Basophils 0.1 thou/uL (0.0-0.2); #Eosinphils 0.3 thou/uL (0.0-0.7); #Lymphocytes 2.5 thou/uL (1.20-3.40); #Monocytes 0.6 thou/uL (0.11-0.59); #Neutrophils 5.7 thou/uL (1.40-6.50); %Basophils 0.8 % (0.0-1.0); %Eosinophils 2.9 % (0.0-10.0); %Lymphocytes 27.1 % (21.0-51.0); %Monocytes 6.6 % (0.0-10.0); %Neutrophils 62.6 % (42.0-75.0); Hemoglobin 13.6 g/dL (14.0-18.0); Mean Corpuscular HGB CONC 31.6 g/dL (32.0-36.0); Mean Corpuscular Volume 95.2 fL (78.0-98.0); Platelet Count 262 thou/uL (130-400); RBC Distribution Width 12.7 % (11.5-14.5); Red Blood Cell (RBC) Count 4.54 mill/uL (4.70-6.10); White Blood Cell (WBC) Count 9.1 thou/uL (4.8-10.8)
[2021-11-27 05:50] LABS: ALT (SGPT) 20 U/L (8-55); AST (SGOT) 14 U/L (5-34); Albumin 4.1 g/dL (3.4-4.8); Alkaline Phosphatase 90 U/L (40-110); Anion Gap 16 mmol/L (10-20); BUN (Urea Nitrogen) 27 mg/dL (8.4-25.7); Bilirubin, Total 0.6 mg/dL (0.2-1.2); Calc. Creatinine Clearance 0 mL/min (70-130); Carbon Dioxide 24 mmol/L (23-31); Chloride 102 mmol/L (98-107); Globulin 3.1 g/dL (2.4-3.5); Glucose 365 mg/dL (80-115); Potassium 4.4 mmol/L (3.5-5.1); Protein, Total 7.2 g/dL (5.8-8.1); Sodium 138 mmol/L (136-145)
[2021-11-27] MEDS ORDERED: Furosemide 40 MG/4 ML VIAL ONE (06:18)
[2021-11-27] MEDS ORDERED: Nitroglycerin 2% Ointment 1 INCH/1 GM Packet ONE (06:18)
== END 2021-11-27 12:26 | disposition short-term general hospital (02) ==
LOC: ERS 04:14
DX: I11.0 Hypertensive heart disease with heart failure (principal); I50.1 Left ventricular failure, unspecified; J44.9 Chronic obstructive pulmonary disease, unspecified; I48.91 Unspecified atrial fibrillation; Z87.891 Personal history of nicotine dependence
CPT/HCPCS: 71045; 80053; 83880; 84484; 85025; 93005; 94640; 96374; 96375; J1940; J2930; J3475; J7620

== ENCOUNTER 2023-03-07 05:41 | Day surgery (SDC) | payer MEDICARE, OTHER ==
[2023-03-04 12:03] VITALS: BMI 34.5
[2023-03-04 12:38] LABS: Hematocrit 47.4 % (38.8-50.0); Hemoglobin 15.2 g/dL (13.5-17.5); Mean Corpuscular HGB CONC 32.1 g/dL (32.0-36.0); Mean Corpuscular Volume 93.5 fl (81.2-95.1); Mean Platelet Volume 10.7 fl (7.4-10.4); Platelet Count 261 10x3/uL (150-450); RBC Distribution Width 13.6 % (11.5-14.5); Red Blood Cell (RBC) Count 5.07 10x6/uL (4.32-5.72); White Blood Cell (WBC) Count 7.7 10x3/uL (3.5-10.5)
[2023-03-04 12:41] LABS: Anion Gap 15 mmol/L (10-20); BUN (Urea Nitrogen) 17 mg/dL (8.4-25.7); Calc. Creatinine Clearance 79 mL/min (70-130); Calcium 9.1 mg/dL (7.8-10.44); Carbon Dioxide 25 mmol/L (23-31); Chloride 107 mmol/L (98-107); Estimated GFR 52; Glucose 106 mg/dL (80-115); Magnesium 2.1 mg/dL (1.6-2.6); Potassium 4.2 mmol/L (3.5-5.1); Sodium 143 mmol/L (136-145)
[2023-03-04 12:50] LABS: INR-International Normal Ratio 1.1
[2023-03-07] MEDS ORDERED: Lidocaine 1% PF 5 ML VIAL ONE (07:48)
[2023-03-07] MEDS ORDERED: PROPOFOL 200 MG/20 ML VIAL ONE (07:48)
== END 2023-03-07 08:59 | disposition home or self-care (01) ==
LOC: SDC 05:41
PROVIDERS: ATTEND Internal Medicine Cardiovascular Disease
DX: I48.19 Other persistent atrial fibrillation (principal); I13.0 Hypertensive heart and chronic kidney disease with heart failure and stage 1 through stage 4 chronic kidney disease, or unspecified chronic kidney disease; I50.22 Chronic systolic (congestive) heart failure; N18.30 Chronic kidney disease, stage 3 unspecified; E11.22 Type 2 diabetes mellitus with diabetic chronic kidney disease; E05.90 Thyrotoxicosis, unspecified without thyrotoxic crisis or storm; I48.3 Typical atrial flutter; J44.9 Chronic obstructive pulmonary disease, unspecified; E78.5 Hyperlipidemia, unspecified; G47.33 Obstructive sleep apnea (adult) (pediatric); Z79.01 Long term (current) use of anticoagulants; Z87.891 Personal history of nicotine dependence; Z79.4 Long term (current) use of insulin; Z79.899 Other long term (current) drug therapy; Z98.890 Other specified postprocedural states
CPT/HCPCS: 36416; 80048; 83735; 84443; 85027; 85610; 92960; 93005; 93010; J2704